=== PATIENT | male | born 1975 | race Caucasian/White ===

== ENCOUNTER 2025-06-02 14:04 | Emergency (ER) | payer MEDICAID ==
[~2025-06-02] VITALS: Ht 165.1 cm; Wt 73.0 kg
[~2025-06-02 14:04] MED LIST: AMLO5TAB88 PO; ASPI-1406 PO; DOXY100C5 MT; EMPA10TA PO; FURO-151 MT; LISI10TA26 PO; METO25TA6 PO; SPIR25TA PO
[2025-06-02 14:05] VITALS: O2SAT 100
[2025-06-02] MEDS ORDERED: FURO-151 MT (16:15)
[2025-06-02] MEDS ORDERED: LISI10TA26 MT (16:15)
[2025-06-02 16:50] VITALS: BP 148/106; PULSE 100; RESP 16; TEMP 37.1; O2SAT 100
[2025-06-12] MEDS ORDERED: COR6 PO (11:18)
[2025-06-12] MEDS ORDERED: POTA-204 PO (11:18)
[2025-06-12] MEDS ORDERED: LISI2.5T47 PO (11:18)
[2025-06-12] MEDS ORDERED: FURO40TA5 PO (11:18)
[2025-06-12] MEDS ORDERED: LIP40 PO (11:18)
== END 2025-06-02 17:06 | disposition home or self-care (01) ==
LOC: ER 14:04
DX: I10 Essential (primary) hypertension (principal); Z76.0 Encounter for issue of repeat prescription; Z79.899 Other long term (current) drug therapy
CPT/HCPCS: 99281; 99282